=== PATIENT | female | born 1965 | race Caucasian/White ===

== ENCOUNTER 2024-12-21 12:42 | Day surgery (SDC) | payer OTHER ==
[2024-12-21 14:03] VITALS: RESP 18; TEMP 98.1
[2024-12-21 14:48] VITALS: BP 135/77; PULSE 79
--- NOTE | 2024-12-21 15:01 | US ---
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 The risks and benefits of the procedure were discussed with the patien t. The site was marked. Timeout procedure was performed Ultrasound imaging demonstrates anomaly solid nodule lower pole right thyroid lobe. The patient was prepped, draped in the usual sterile fashion, and locally anesthetized with 1% lidoca ine. Five fine needle aspiration were then performed with a 25 gauge needle. Samples were sent to [facility] pathology department for further analysis. Patient tolerated the procedure without incident and wa s sent home in stable condition. IMPRESSION: Successful ultrasound guided fine needle aspiration [facility] Helga Zhou, , 12/21/2024 2:59 PM
== END 2024-12-21 14:40 | disposition home or self-care (01) ==
LOC: RADPROMAIN 12:42
PROVIDERS: ATTEND Family Medicine
DX: E04.1 Nontoxic single thyroid nodule (principal)
CPT/HCPCS: 10005; 88173; 88305